=== PATIENT | male | born 1980 | race Caucasian/White ===

== ENCOUNTER 2019-11-03 09:05 | Emergency (ER) | payer MEDICAID ==
[~2019-11-03] VITALS: Ht 177.8 cm; Wt 57.0 kg
[2019-11-03 10:02] LABS: BASOPHILS % 0.5 % (0.0-2.0); HEMATOCRIT. 51.4 % (42.0-52.0); HEMOGLOBIN. 17.5 g/dL (14.0-18.0); LYMPHOCYTES % 9.3 % (20.0-50.0); MEAN CORPUSCULAR HEMOGLOBIN 31.1 pg (28.0-32.0); MEAN CORPUSCULAR VOLUME 91.3 fL (80.0-94.0); MEAN PLATELET VOLUME 7.7 fl (7.4-10.4); MONOCYTES % 7.6 % (2.0-8.0); NEUTROPHILS % 82.6 % (40.0-76.0); PLATELET 413 x1000/uL (130-400); RED BLOOD CELL COUNT 5.63 mill/uL (4.7-6.1); RED CELL DISTRIBUTION WIDTH 13.9 % (11.6-14.6)
[2019-11-03 10:08] LABS: CHLORIDE 103 mEq/L (98-107)
[2019-11-03 10:12] LABS: ETHANOL BLOOD < 10 mg/dL
[2019-11-03 10:33] VITALS: BP 118/84
== END 2019-11-03 10:56 | disposition home or self-care (01) ==
LOC: ER 09:17
DX: F60.0 Paranoid personality disorder (principal); I10 Essential (primary) hypertension; F12.10 Cannabis abuse, uncomplicated; F19.10 Other psychoactive substance abuse, uncomplicated
CPT/HCPCS: 36415; 80053; 80320; 82962; 85025; 99283; G0480

== ENCOUNTER 2023-03-14 04:48 | Emergency (ER) | payer MEDICAID, OTHER ==
[~2023-03-14] VITALS: Ht 170.2 cm; Wt 76.3 kg
[2023-03-14 04:51] VITALS: PULSE 98
[2023-03-14 04:57] VITALS: BP 159/105; RESP 15; TEMP 98.6; O2SAT 98
[2023-03-14] MEDS ORDERED: ACETAMINOPHEN 325MG TABLET PO ONE (06:00)
[2023-03-14] MEDS ORDERED: ACET-2708 PO (06:51)
== END 2023-03-14 08:38 | disposition home or self-care (01) ==
LOC: ER 04:48
DX: M75.31 Calcific tendinitis of right shoulder (principal); F12.10 Cannabis abuse, uncomplicated; I10 Essential (primary) hypertension
CPT/HCPCS: 73030; 99283